=== PATIENT | male | born 1970 | race American Indian/Alaskan Native ===

== ENCOUNTER 2017-01-02 00:09 | Emergency (ER) | payer SELFPAY ==
[2017-01-02 00:20] VITALS: TEMP 98.2
[2017-01-02] MEDS ORDERED: TDAP Vaccine 0.5 mL Syr IM ONE (01:14)
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
[2017-01-02 04:52] VITALS: BP 136/84; PULSE 91; RESP 18; O2SAT 99
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
== END 2017-01-02 04:23 | disposition home or self-care (01) ==
LOC: H.ER 00:09
DX: S01.01XA Laceration without foreign body of scalp, initial encounter (principal); S09.90XA Unspecified injury of head, initial encounter; Y04.0XXA Assault by unarmed brawl or fight, initial encounter; Y99.0 Civilian activity done for income or pay

== ENCOUNTER 2017-01-05 18:40 | Inpatient (IN) | payer MEDICAID ==
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
[2017-01-05 21:41] LABS: BASO # 0.1 K/uL (0.0-0.2); BASO % 0.7 % (0.0-2.0); EOS # 0.3 K/uL (0.0-0.7); EOS % 3.2 % (0.0-4.0); HEMATOCRIT 45.4 % (35.0-51.0); LYMPH % 33.7 % (20.0-40.0); MEAN CORPUSCULAR HEMOGLOBIN 28.2 pg (27.0-31.0); MONO # 0.8 K/uL (0.0-0.8); NEUT # 4.7 K/uL (1.8-7.0); NEUT % 53.4 % (50.0-75.0); NRBC % 0.1 % (0.0-0.0); RED CELL DISTRIBUTION WIDTH 13.7 % (11.5-14.5); WHITE BLOOD COUNT 8.8 K/uL (4.8-10.8)
[2017-01-05 21:53] LABS: ALB/GLOB RATIO 1.4 (1.0-2.1); ALKALINE PHOSPHATASE 89 U/L (38-126); ALT/SGPT 38 U/L (21-72); AST/SGOT 26 U/L (17-59); BILIRUBIN,TOTAL 0.4 mg/dl (0.2-1.3); BLOOD UREA NITROGEN 11 mg/dl (9-20); CALCIUM 9.4 mg/dL (8.4-10.2); CARBON DIOXIDE 24 mmol/L (22-30); CHLORIDE 102 mmol/L (98-107); GFR AFRICAN-AMERICAN > 60; GLUCOSE,RANDOM 183 mg/dL (75-110); POTASSIUM 4.1 MMOL/L (3.6-5.0); SODIUM 139 mmol/l (132-148); TOTAL PROTEIN 7.9 G/DL (6.3-8.2)
[2017-01-05 22:02] LABS: PARTIAL THROMBOPLASTIN TIME 25.9 SECONDS (23.3-32.5)
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
--- NOTE | 2017-01-06 08:03 | CARD ---
APPROVED REPORT EKG Measurement Heart [id number] ID [id number] <Conclusion> Normal sinus rhythm Normal ECG
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
--- NOTE | 2017-01-06 13:03 | CT ---
PROCEDURE: CT HEAD WITHOUT CONTRAST. HISTORY: Progress of intracranial Hemorrhage COMPARISON: January 05, 2017. TECHNIQUE: Axial computed tomography images were obtained through the head/brain without intravenous contrast. Radiation dose: Total exam DLP = 852.71 mGy-cm. This CT exam was performed using one or more of the following dose reduction techniques: Automated exposure control, adjustment of the mA and/or kV according to patient size, and/or use of iterative reconstruction technique. FINDINGS: HEMORRHAGE: Stable focus of acute hemorrhage right frontal lobe with adjacent edema and geographic area of low attenuation the overall appearance and location suggests adjacent frontal lobe infarction. Stable degree of edema and mass. BRAIN: No atrophy or chronic microvascular ischemic changes. VENTRICLES: Unremarkable. No hydrocephalus. CALVARIUM: Unremarkable. PARANASAL SINUSES: Unremarkable as visualized. No significant inflammatory changes. MASTOID AIR CELLS: Unremarkable as visualized. No inflammatory changes. OTHER FINDINGS: None. IMPRESSION: Stable right frontal parenchymal hemorrhage, hematoma with edema. Geographic area of low attenuation suggests associated infarction.
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
[2017-01-06] MEDS: Apap-Butalbital-Caffeine 325-50-40mg Tab PO PRN (18:15)
--- NOTE | 2017-01-06 19:07 | MRI ---
PROCEDURE: MRI BRAIN WITHOUT CONTRAST HISTORY: right frontal hyperdensity Mass vs hematoma COMPARISON: Comparison is made to the previous same-day CT of the head without contrast TECHNIQUE: Multiplanar, multisequence MR images of the brain were obtained without intravenous contrast enhancement. FINDINGS: HEMORRHAGE: None DWI: No evidence of an acute or early subacute infarction. BRAIN PARENCHYMA: There is suspicious for mass lesion at the inferior aspect of the right frontal lobe surrounding with vasogenic edema. The mass and the edema are also crossing the midline to the parasagittal left frontal lobe. There is slight right to left midline shift at the inferior aspect of the frontal region. No atrophy or chronic microvascular ischemic changes. VENTRICLES: Unremarkable. No hydrocephalus. CRANIUM: Unremarkable. ORBITS: Grossly unremarkable. PARANASAL SINUSES/MASTOIDS: Clear VASCULAR SYSTEM: Skull base flow voids intact. OTHER FINDINGS: None. IMPRESSION: Suspicious for mass lesion surrounding with vasogenic edema at the medial inferior aspect of the right frontal lobe crossing the midline. Further assessment with postcontrast images is recommended. No MRI evidence of hematoma or acute infarct.
[2017-01-07] MEDS: Apap-Butalbital-Caffeine 325-50-40mg Tab PO PRN ×3 (04:49→19:35)
[2017-01-07 05:36] LABS: BASO # 0.1 K/uL (0.0-0.2); BASO % 0.7 % (0.0-2.0); EOS # 0.3 K/uL (0.0-0.7); HEMATOCRIT 44.1 % (35.0-51.0); LYMPH # 4.3 K/uL (1.0-4.3); LYMPH % 47.3 % (20.0-40.0); MEAN CELL VOLUME 87.6 fl (80.0-94.0); MEAN CORPUSCULAR HEMOGLOBIN 28.2 pg (27.0-31.0); MEAN CORPUSCULAR HGB CONC 32.1 g/dL (33.0-37.0); MEAN PLATELET VOLUME 8.4 fl (7.2-11.7); MONO # 0.8 K/uL (0.0-0.8); MONO % 9.1 % (0.0-10.0); NEUT # 3.6 K/uL (1.8-7.0); NEUT % 39.9 % (50.0-75.0); NRBC % 0.1 % (0.0-0.0); RED CELL DISTRIBUTION WIDTH 13.3 % (11.5-14.5)
[2017-01-07 05:59] LABS: ALB/GLOB RATIO 1.4 (1.0-2.1); ALKALINE PHOSPHATASE 80 U/L (38-126); ALT/SGPT 36 U/L (21-72); AST/SGOT 23 U/L (17-59); BILIRUBIN,TOTAL 0.3 mg/dl (0.2-1.3); BLOOD UREA NITROGEN 13 mg/dl (9-20); CALCIUM 9.4 mg/dL (8.4-10.2); CARBON DIOXIDE 25 mmol/L (22-30); CHLORIDE 104 mmol/L (98-107); GFR AFRICAN-AMERICAN > 60; GLUCOSE,RANDOM 107 mg/dL (75-110); SODIUM 141 mmol/l (132-148); TOTAL PROTEIN 7.6 G/DL (6.3-8.2)
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
--- NOTE | 2017-01-07 11:47 | CP.PCM.CON ---
History of Present Illness - History of Present Illness History of Present Illness: dictated resolving subfrontal contusion' rec mobilize -DC Past Patient History - Past Medical History & Family History Past Medical History?: Yes - Past Social History Smoking Status: Former Smoker Chewing Tobacco Use: No Cigar Use: No Alcohol: Social Drugs: Cannabis - CARDIAC Hx Cardiac Disorders: No - PULMONARY Hx Respiratory Disorders: No - NEUROLOGICAL Hx Neurological Disorder: No - HEENT Hx HEENT Problems: No - RENAL Hx Chronic Kidney Disease: No - ENDOCRINE/METABOLIC Hx Endocrine Disorders: No - HEMATOLOGICAL/ONCOLOGICAL Hx Blood Disorders: No - INTEGUMENTARY Hx Dermatological Problems: No - MUSCULOSKELETAL/RHEUMATOLOGICAL Hx Musculoskeletal Disorders: No - GASTROINTESTINAL Hx Gastrointestinal Disorders: No - GENITOURINARY/GYNECOLOGICAL Hx Genitourinary Disorders: No - PSYCHIATRIC Hx Psychophysiologic Disorder: No Hx Substance Use: No - SURGICAL HISTORY Hx Surgeries: No - ANESTHESIA Hx Anesthesia: No Meds Allergies/Adverse Reactions: Allergies Allergy/AdvReac Type Severity Reaction Status Date / Time general anesthseia Allergy RASH Uncoded 01/05/17 19:04 - Medications Medications: Current Medications Acetaminophen (Tylenol 325mg Tab) 650 mg PO Q4 PRN PRN Reason: Headache Last Admin: 01/06/17 04:06 Dose: 650 mg Acetaminophen/Butalbital/Caffeine (Fioricet) 1 tab PO Q4 PRN PRN Reason: Headache Last Admin: 01/07/17 11:04 Dose: 1 tab Amlodipine Besylate (Norvasc) 10 mg PO DAILY [facility] Last Admin: 01/07/17 11:01 Dose: 10 mg Morphine Sulfate (Morphine) 4 mg IVP Q4 PRN PRN Reason: Pain, severe (8-10) Last Admin: 01/06/17 23:41 Dose: 4 mg Morphine Sulfate (Morphine) 2 mg IVP Q4 PRN PRN Reason: Pain, moderate (4-7) Ondansetron HCl (Zofran Inj) 4 mg IVP Q6 PRN PRN Reason: Nausea/Vomiting Results - Vital Signs Recent Vital Signs: Last Vital Signs Temp 98.3 F 01/07/17 08:00 Pulse 74 01/07/17 11:01 Resp 18 01/07/17 08:00 BP 166/67 H 01/07/17 11:01 Pulse Ox 95 01/07/17 08:00 - Labs Result Diagrams: 01/07/17 04:35 01/07/17 04:35 Labs: Laboratory Results - last 24 hr 01/07/17 01/07/17 04:35 04:35 WBC 9.0 RBC 5.04 Hgb 14.2 Hct 44.1 MCV 87.6 MCH 28.2 MCHC 32.1 L RDW 13.3 Plt Count 214 MPV 8.4 Neut % (Auto) 39.9 L Lymph % (Auto) 47.3 H Childress % (Auto) 9.1 Eos % (Auto) 3.0 Baso % (Auto) 0.7 Neut # 3.6 Lymph # 4.3 Childress # 0.8 Eos # 0.3 Baso # 0.1 Sodium 141 Potassium 4.0 Chloride 104 Carbon Dioxide 25 Anion Gap 17 BUN 13 Creatinine 0.8 Est GFR ( Amer) > 60 Est GFR (Non-Af Amer) > 60 Random Glucose 107 Calcium 9.4 Total Bilirubin 0.3 AST 23 ALT 36 Alkaline Phosphatase 80 Total Protein 7.6 Albumin 4.4 Globulin 3.3 Albumin/Globulin Ratio 1.4
[2017-01-07 11:56] LABS: CHOLESTEROL 160 mg/dL (0-199)
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
[2017-01-07] MEDS ORDERED: Gadodiamide 287 MG/ML VIAL (15ML) IV ONE (17:51)
[2017-01-08 08:11] VITALS: RESP 20
[2017-01-08] MEDS: Apap-Butalbital-Caffeine 325-50-40mg Tab PO PRN (08:22)
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
--- NOTE | 2017-01-08 13:23 | MRI ---
PROCEDURE: MRI BRAIN WITH AND WITHOUT CONTRAST HISTORY: r/o right frontal mass COMPARISON: Multiple prior CT scans, the most recent from 01/06/2017 and noncontrast MRI brain from 01/06/2017. TECHNIQUE: Multiplanar, multisequence MR images of the brain were obtained with and without intravenous contrast enhancement. FINDINGS: HEMORRHAGE: There is a rim enhancing 2.6 x 1.0 cm subacute hematoma in the right paramedian inferior frontal lobe with extensive surrounding vasogenic edema extending to the paramedian superior frontal low. Also noted is a small subacute hematoma in the left paramedian inferior frontal lobe. DWI: No evidence of an acute or early subacute infarction. BRAIN PARENCHYMA: There is no mass or extra-axial fluid collection. There is no territorial infarction. The midline sagittal structures are normal. ENHANCEMENT: No abnormal leptomeningeal enhancement. VENTRICLES: The ventricles are normal in size, shape and configuration. CRANIUM: There is normal bone marrow signal pattern ORBITS: Grossly unremarkable. PARANASAL SINUSES/MASTOIDS: Clear VASCULAR SYSTEM: The normal signal voids in the larger intracranial arteries. OTHER FINDINGS: None . IMPRESSION: Findings are most compatible with 2.6 x 1.0 cm rim enhancing subacute hematoma in the right paramedian inferior frontal lobe with extensive surrounding vasogenic edema extending superiorly. Also noted is a small left paramedian inferior frontal lobe subacute hematoma. No evidence of mass, midline shift or extra-axial fluid collection.
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
[2017-01-08 15:41] VITALS: BP 153/97; PULSE 72; TEMP 98.9; O2SAT 99
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
== END 2017-01-08 18:55 | disposition home or self-care (01) | DRG 85 ==
LOC: H.ER 18:40 → H.ERHOLD 21:23 → H.ICU/CCU 23:41 → H.TEL 01-07 15:22
PROVIDERS: ADMIT Internal Medicine; ATTEND Internal Medicine
DX: S06.300A Unspecified focal traumatic brain injury without loss of consciousness, initial encounter (principal); G93.6 Cerebral edema; I10 Essential (primary) hypertension; G44.89 Other headache syndrome; Y08.89XA Assault by other specified means, initial encounter; Y92.9 Unspecified place or not applicable; Z87.891 Personal history of nicotine dependence